=== PATIENT | male | born 1960 | race Caucasian/White ===

== ENCOUNTER 2019-09-10 19:17 | Emergency (ER) | payer OTHER ==
[~2019-09-10] VITALS: Ht 177.8 cm; Wt 68.0 kg
[~2019-09-10 19:17] MED LIST: CYCLOBENZAPRINE5 MG PO; NORCO 5-325 TA1 EACH PO; VALIUM5 MG PO; VICOPROFEN 2001 EAC1 PO
[2019-09-10 19:39] LABS: URINE BILIRUBIN NEGATIVE (Negative); URINE BLOOD NEGATIVE (Negative); URINE CLARITY CLEAR; URINE COLOR YELLOW; URINE GLUCOSE-RANDOM NEGATIVE (Negative); URINE KETONES TRACE (Negative); URINE LEUKOCYTES-REFLEX NEGATIVE (Negative); URINE NITRITE-REFLEX NEGATIVE (Negative); URINE PROTEIN NEGATIVE (Negative); URINE SPECIFIC GRAVITY >= 1.030 (1.005-1.030)
[2019-09-10 19:51] LABS: ABSOLUTE BASOPHILS 0.1 thou/uL (0.0-0.2); ABSOLUTE EOSINOPHILS 0.5 thou/uL (0.0-0.7); ABSOLUTE LYMPHOCYTES 1.7 thou/uL (0.8-5.3); ABSOLUTE MONOCYTES 1.1 thou/uL (0.0-1.2); ABSOLUTE NEUTROPHILS 6.8 thou/uL (1.6-8.1); BASOPHILS 0.6 %; EOSINOPHILS 4.5 %; HEMATOCRIT 45.3 % (42.0-52.0); HEMOGLOBIN 15.5 gm/dL (14.0-18.0); LYMPHOCYTES 17.2 %; MCH 30.9 pg (26.0-34.0); MCHC 34.2 g/dL (28.0-37.0); MCV 90.4 fL (80.0-100.0); MONOCYTES 10.4 %; MPV 7.8 fl. (7.2-11.1); NUCLEATED RBCS 0 /100WBC; PLATELET COUNT* 290 thou/uL (150-400); POLYS 67.3 %; RBC 5.01 mil/uL (4.50-6.00); RDW-CV 14.3 % (10.5-14.5); WBC 10.1 thou/uL (4.0-11.0)
[2019-09-10 20:01] LABS: CALCIUM 8.5 mg/dL (8.5-10.1); CREATININE 0.9 mg/dL (0.6-1.3)
[2019-09-10 20:04] LABS: POTASSIUM 4.6 mmol/L (3.5-5.1)
[2019-09-10 20:06] LABS: ALBUMIN 3.5 g/dL (3.4-5.0); TOTAL BILIRUBIN 0.4 mg/dL (<0.1-1.0); TOTAL PROTEIN 6.9 g/dL (6.4-8.2)
[2019-09-10] MEDS ORDERED: NORCO 5-325 TA1 EAC1 PO (22:09)
[2019-09-10] MEDS ORDERED: ZOFRAN ODT4 MG DISSOLVE (22:09)
[2019-09-10] MEDS ORDERED: BENTYL 20 MG TA20 M1 PO (22:09)
[2019-09-10 22:35] VITALS: BP 113/68
--- NOTE | 2019-09-11 09:44 | EKG ---
[place] [address] ELECTROCARDIOGRAM REPORT Name: MARITZA LAUREN Room: [facility]#: [id number] Admission: 09/10/19 Attend Phys: Discharge: 09/10/19 Date of : 62 Date of Service: 09/10/191925 Report #: [id number] THIS REPORT FOR: //name// [facility] ED Test Date: 2019-09-10 Test Time: 19:26:55 Pat Name: MARITZA LAUREN Department: Room: Gender: [place]: [place] : 1960 Requested By: Hermes Mathias Order Number: [id number] Deonte MD: Rex Blanco Measurements Intervals [place] Rate: 54 P: 56 [place]: 158 QRS: 71 QRSD: 101 T: 57 QT: 407 QTc: 386 Interpretive Statements Sinus rhythm No previous ECG available for comparison Electronically Signed On 09-11-2019 9:43:16 [employer]IOR [employer] by Rex Blanco [email or web address] <ELECTRONICALLY SIGNED> By: Rex Blanco MD, [facility] 09/11/19 0943 25 25 Rex Blanco MD, FACC /EPI
== END 2019-09-10 22:35 | disposition home or self-care (01) ==
LOC: M.ERS 19:17
PROVIDERS: Physician Assistant
DX: K52.9 Noninfective gastroenteritis and colitis, unspecified (principal); F17.210 Nicotine dependence, cigarettes, uncomplicated